=== PATIENT | male | born 1940 | race Native Hawaiian/Other Pacific Islander ===

== ENCOUNTER → 2016-08-10 | Outpatient (CLI) | payer OTHER ==
[~2016-08-10] MED LIST: ALEVE220 MG PO; AMARYL4 MG PO; ASPIRIN EC81 M1 PO; ATORVASTATIN CA40 MG PO; GLUCOPHAGE1000 MG PO; IBUPROFEN 800800 M1 PO; LANTUSSOLASTAR SUBQ; LISINOPRIL10 MG PO; METFORMIN HCL500 MG PO; NOVOLOG100 UNIT/1
== END ==
LOC: RAD 11:20
DX: M25.551 Pain in right hip (principal)